=== PATIENT | female | born 1980 | race Caucasian/White ===

== ENCOUNTER 2016-10-16 18:47 | Emergency (ER) | payer SELFPAY ==
--- NOTE | 2016-10-16 20:44 | UC ---
Ear Complaint HPI - HPI Summary HPI Summary: pt c/o bilateral ear pain, dysuria and unusual vaginal discharge, low back discomfort and vaginal burning. C/o, thin, white discharge and vaginal discomfort. Denies STD exposure - History of Current Complaint Stated Complaint: POSSIBLE EAR INFECTION Time Seen by Provider: 10/16/16 20:12 Hx Obtained From: Patient Hx Last Menstrual Period: 06/10 ?: No Onset/Duration: Gradual Onset, Lasting Days Severity Initially: Mild Severity Currently: Mild - Allergies/Home Medications Allergies/Adverse Reactions: Allergies Allergy/AdvReac Type Severity Reaction Status Date / Time Amoxicillin Allergy Severe Airway Verified 10/16/16 21:17 Obstruction Sulfamethoxazole Allergy Severe Difficulty Verified 10/16/16 21:17 w/Trimethoprim Breathing [From Bactrim] Cooked tomatoes, spaghetti Allergy Swelling Uncoded 10/16/16 21:17 sauce, k Of Face,Lips,& Throat PMH/Surg Hx/FS Hx/Imm Hx Previously Healthy: Yes Endocrine History Of: Denies: Diabetes Respiratory History Of: Denies: COPD - Surgical History Surgical History: Yes Surgery Procedure, Year, and Place: 1986 [facility] & A. 2000 TUBAL LIGATION. EARS TUBES - Family History Known Family History: Positive: Cardiac Disease, Hypertension, Diabetes - Social History Lives: With Family Alcohol Use: Rare Substance Use Type: None Smoking Status (MU): Light Every Day Tobacco Smoker Type: Cigarettes Amount Used/How Often: 1/2 ppd Length of Time of Smoking/Using Tobacco: 24 years Household Exposure Type: Cigarettes - Immunization History Most Recent Influenza Vaccination: NOT IN 2013 Review of Systems Constitutional: Negative Skin: Negative Eyes: Negative ENT: Ear Ache Respiratory: Negative Cardiovascular: Negative Gastrointestinal: Negative Genitourinary: Dysuria, Other - vaginal discharge Motor: Negative Neurovascular: Negative Musculoskeletal: Negative Neurological: Negative Psychological: Negative All Other Systems Reviewed And Are Negative: Yes Physical Exam Triage Information Reviewed: Yes Appearance: Well-Appearing Eye Exam: Normal ENT Exam: Normal Neck exam: Normal Respiratory Exam: Normal Cardiovascular Exam: Normal Abdominal Exam: Other Abdomen Description: Positive: Other: - low back discomfort Musculoskeletal Exam: Normal Neurological Exam: Normal Psychological Exam: Normal Skin Exam: Normal Ear Complaint Course/Dx - Differential Dx/Diagnosis Differential Diagnosis/HQI/PQRI: Otitis Media, URI Provider Diagnoses: URI. vaginitis Discharge - Discharge Plan Condition: Stable Disposition: HOME Patient Education Materials: Upper Respiratory Infection (ED), Vaginitis (ED) Referrals: SAMUEL Brooks [Primary Care Provider] -
[2016-10-16 21:23] VITALS: BP 129/74
== END 2016-10-16 21:29 | disposition home or self-care (01) ==
LOC: UCCORT 18:47
DX: J06.9 Acute upper respiratory infection, unspecified (principal); N76.0 Acute vaginitis; F17.210 Nicotine dependence, cigarettes, uncomplicated; Z88.1 Allergy status to other antibiotic agents
CPT/HCPCS: 87480; 87491; 87510; 87591; 87660; 99212; G0463

== ENCOUNTER 2017-10-09 18:00 | Emergency (ER) | payer OTHER ==
[2017-10-09 19:50] VITALS: BP 109/77
--- NOTE | 2017-10-09 20:12 | UC ---
Throat Pain/Nasal Mo HPI - HPI Summary HPI Summary: pt c/o nasal congestion, sinus pressure, pain, bilateral ear pain X 7-10 days. - History of Current Complaint Chief Complaint: UCGeneralIllness Stated Complaint: EAR PAIN, SINUS Time Seen by Provider: 10/09/17 19:45 Hx Obtained From: Patient Hx Last Menstrual Period: 06/10 ?: No Onset/Duration: Gradual Onset, Lasting Days - 10, Still Present Severity: Moderate Pain Intensity: 4 Associated Signs & Symptoms: Positive: Sinus Discomfort Related History: Seasonal Allergies - Epiglottits Risk Factors Epiglottis Risk Factors: Negative - Allergies/Home Medications Allergies/Adverse Reactions: Allergies Allergy/AdvReac Type Severity Reaction Status Date / Time Amoxicillin Allergy Severe Airway Verified 10/09/17 19:50 Obstruction Sulfamethoxazole Allergy Severe Difficulty Verified 10/09/17 19:50 w/Trimethoprim Breathing [From Bactrim] Cooked tomatoes, spaghetti Allergy Swelling Uncoded 10/09/17 19:50 sauce, k Of Face,Lips,& Throat Home Medications: Home Medications Cetirizine* [ZyrTEC 10 MG TAB*] 10 mg PO DAILY 10/09/17 [History Confirmed 10/09] PMH/Surg Hx/FS Hx/Imm Hx Previously Healthy: Yes - Surgical History Surgical History: Yes Surgery Procedure, Year, and Place: 1986 [facility] & A. 2000 TUBAL LIGATION. EARS TUBES. hysterectomy 05/2017 - Family History Known Family History: Positive: Cardiac Disease, Hypertension, Diabetes - Social History Occupation: Employed Full-time Lives: With Family Alcohol Use: None Substance Use Type: None Smoking Status (MU): Light Every Day Tobacco Smoker Type: Cigarettes Amount Used/How Often: 1/2 ppd Length of Time of Smoking/Using Tobacco: 24 years Have You Smoked in the Last Year: Yes Household Exposure Type: Cigarettes - Immunization History Most Recent Influenza Vaccination: NOT IN 2013 Review of Systems Constitutional: Fever, Fatigue Skin: Negative Eyes: Negative ENT: Sinus Congestion, Sinus Pain/Tenderness Respiratory: Negative Cardiovascular: Negative Gastrointestinal: Negative Genitourinary: Negative Motor: Negative Neurovascular: Negative Musculoskeletal: Negative Neurological: Headache Psychological: Negative Is Patient Immunocompromised?: No All Other Systems Reviewed And Are Negative: Yes Physical Exam Triage Information Reviewed: Yes Appearance: Ill-Appearing Vital Signs: Initial Vital Signs Temp 98.8 F 10/09/17 19:44 Pulse 76 10/09/17 19:44 Resp 15 10/09/17 19:44 BP 109/77 10/09/17 19:44 Pulse Ox 99 10/09/17 19:44 Vital Signs Reviewed: Yes Eye Exam: Normal ENT Exam: Other ENT: Positive: Nasal congestion, Sinus tenderness Dental Exam: Normal Neck exam: Normal Respiratory Exam: Normal Cardiovascular Exam: Normal Musculoskeletal Exam: Normal Neurological Exam: Normal Psychological Exam: Normal Skin Exam: Normal Throat Pain/Nasal Course/Dx - Differential Dx/Diagnosis Differential Diagnosis/HQI/PQRI: Otitis Media, Sinusitis, URI Provider Diagnoses: sinusitis. bilateral ear pain Discharge - Discharge Plan Condition: Stable Disposition: HOME Prescriptions: Azithromycin TAB* [Zithromax TAB (Z-HOLLIE) 250 mg #6 tabs] 250 mg PO DAILY #4 tab Patient Education Materials: Sinusitis (ED) Referrals: [facility] [Outside] No Primary Care Phys,NOPCP [Primary Care Provider] - If Needed
[2017-10-09] MEDS ORDERED: Azithromycin TAB* 250 MG PO ONE (20:13)
== END 2017-10-09 20:45 | disposition home or self-care (01) ==
LOC: UCCORT 18:00
DX: J32.9 Chronic sinusitis, unspecified (principal); H92.03 Otalgia, bilateral; Z88.1 Allergy status to other antibiotic agents; Z88.2 Allergy status to sulfonamides; F17.210 Nicotine dependence, cigarettes, uncomplicated
CPT/HCPCS: 99212; A9270-GY; G0463

== ENCOUNTER 2019-02-27 21:18 | Emergency (ER) | payer BC, OTHER ==
[2019-02-27 21:33] VITALS: BP 120/73
--- NOTE | 2019-02-27 21:47 | ED ---
Throat Pain/Nasal Congestion - HPI Summary HPI Summary: 38 yr old female with the complaint of sinus pressure, post nasal drip, coughing. Onset a couple of weeks ago. Symptoms are moderate. 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 She states her boyfriend found a worm in anal area last night. She is concerned for pin worms. - History of Current Complaint Chief Complaint: UCGeneralIllness Time Seen by Provider: 02/27/19 21:34 - Allergies/Home Medications Allergies/Adverse Reactions: Allergies Allergy/AdvReac Type Severity Reaction Status Date / Time MS Amoxicillin [Amoxicillin] Allergy Severe Airway Verified 10/09/17 19:50 Obstruction MS Sulfamethoxazole Allergy Severe Difficulty Verified 10/09/17 19:50 w/Trimethoprim Breathing [From Bactrim] Cooked tomatoes, spaghetti Allergy Swelling Uncoded 10/09/17 19:50 sauce, k Of Face,Lips,& Throat Home Medications: Home Medications Aspirin/Acetaminophen/Caffeine [Excedrin Migraine Caplet] 1 each PO DAILY [History Confirmed 02/27/19] PMH/Surg Hx/FS Hx/Imm Hx Endocrine/Hematology History: Denies: Hx Diabetes Respiratory History: Denies: Hx Chronic Obstructive Pulmonary Disease (COPD) - Surgical History Surgery Procedure, Year, and Place: 1986 [facility] & A. 2000 TUBAL LIGATION. EARS TUBES. hysterectomy 05/2017 Infectious Disease History: No Infectious Disease History: Denies: Traveled Outside the [place] in Last 30 Days - Family History Known Family History: Positive: Cardiac Disease, Hypertension, Diabetes - Social History Lives: With Family Alcohol Use: None Substance Use Type: Reports: None Smoking Status (MU): Light Every Day Tobacco Smoker Type: Cigarettes Amount Used/How Often: 1/2 ppd Length of Time of Smoking/Using Tobacco: 24 years Have You Smoked in the Last Year: Yes Review of Systems Constitutional: Negative Positive: Sore Throat, Nasal Discharge Positive: Cough Positive: Other - anal itching All Other Systems Reviewed And Are Negative: Yes Physical Exam Triage Information Reviewed: Yes Vital Signs On Initial Exam: Initial Vitals Temp Pulse Resp BP Pulse Ox 97 F 66 16 120/73 99 02/27/19 21:29 02/27/19 21:29 02/27/19 21:29 02/27/19 21:29 02/27/19 21:29 Vital Signs Reviewed: Yes Appearance: Positive: Well-Appearing Skin: Positive: Warm, Skin Color Reflects Adequate Perfusion Head/Face: Positive: Normal Head/Face Inspection Eyes: Positive: EOMI ENT: Positive: Pharyngeal erythema, Nasal congestion, TMs normal, Sinus tenderness Neck: Positive: Nontender Respiratory/Lung Sounds: Positive: Clear to Auscultation, Breath Sounds Present Cardiovascular: Positive: RRR. Negative: Murmur Abdomen Description: Positive: Nontender. Negative: Distended Musculoskeletal: Positive: Strength/ROM Intact Neurological: Positive: Sensory/Motor Intact, Alert, Oriented to Person Place, Time, CN Intact II-III Psychiatric: Positive: Normal - Rylie Coma Scale Best Eye Response: 4 - Spontaneous Best Motor Response: 6 - Obeys Commands Best Verbal Response: 5 - Oriented Coma Scale Total: 15 Diagnostics - Vital Signs Vital Signs Temp Pulse Resp BP Pulse Ox 02/27/19 21:29 97 F 66 16 120/73 99 - Laboratory Lab Statement: Any lab studies that have been ordered have been reviewed, and results considered in the medical decision making process. EENT Course/Dx - Course Course Of Treatment: 38 yr old with possible pinworms, and sinusitis. Rx with biaxin. Await return of the paddle test for pin worms; patient to bring back here. - Diagnoses Provider Diagnoses: Sinusitis, Anal itching Discharge - Sign-Out/Discharge Documenting (check all that apply): Patient Departure All imaging exams completed and their final reports reviewed: No Studies - Discharge Plan Condition: Good Disposition: HOME Prescriptions: Clarithromycin TAB* [Biaxin 500 MG TAB*] 500 mg PO BID #20 tab Patient Education Materials: Sinusitis (ED), Anal Itching (ED) Referrals: SAMUEL Gifford [Primary Care Provider] - 1 Day Additional Instructions: bring back the stool paddle for further testing - Billing Disposition and Condition Condition: GOOD Disposition: Home
== END 2019-02-27 21:56 | disposition home or self-care (01) ==
LOC: UCCORT 21:18
DX: J32.9 Chronic sinusitis, unspecified (principal); L29.0 Pruritus ani; Z88.2 Allergy status to sulfonamides; Z88.1 Allergy status to other antibiotic agents; F17.210 Nicotine dependence, cigarettes, uncomplicated
CPT/HCPCS: 87172; 99212; G0463

== ENCOUNTER 2019-09-12 21:55 | Emergency (ER) | payer BC ==
[2019-09-12] MEDS ORDERED: DOXYcycline CAP(*) 100 MG PO ONE (22:11)
[2019-09-12 22:12] VITALS: BP 133/98
--- NOTE | 2019-09-12 22:13 | UC ---
Throat Pain/Nasal Mo HPI - HPI Summary HPI Summary: 39 year old female presents with 3 week history of sinus pain and pressure, nasal congestion, and bilateral ear fullness and pain. Tonight had a brief episode of vertigo after she got up from a nap. States she has been taking OTC diphenhydramine and ibuprofen with little relief in her symptoms. Reports history of chronic sinus infections. Has appointment with her PCP next week. Smokes 1/2 PPD. Denies fever, chills, sore throat, cough, chest pain, or SOB. - History of Current Complaint Stated Complaint: SINUS Hx Obtained From: Patient Hx Last Menstrual Period: 06/10 - Allergies/Home Medications Allergies/Adverse Reactions: Allergies Allergy/AdvReac Type Severity Reaction Status Date / Time MS Amoxicillin [Amoxicillin] Allergy Severe Airway Verified 09/12/19 21:59 Obstruction MS Sulfamethoxazole Allergy Severe Difficulty Verified 09/12/19 21:59 w/Trimethoprim Breathing [From Bactrim] Cooked tomatoes, spaghetti Allergy Swelling Uncoded 09/12/19 21:59 sauce, k Of Face,Lips,& Throat Home Medications: Home Medications diPHENhydraMINE PO* [Benadryl PO 25 MG TAB*] mg PO DAILY 09/12/19 [History] PMH/Surg Hx/FS Hx/Imm Hx Previously Healthy: Yes - Denies significant PMH - Surgical History Surgical History: Yes Surgery Procedure, Year, and Place: 1986 [facility] & A. 2000 TUBAL LIGATION. EARS TUBES. hysterectomy 05/2017 - Family History Known Family History: Positive: Cardiac Disease, Hypertension, Diabetes - Social History Occupation: Employed Full-time Lives: With Family Alcohol Use: None Substance Use Type: None Smoking Status (MU): Light Every Day Tobacco Smoker Type: Cigarettes Amount Used/How Often: 1/2 ppd Length of Time of Smoking/Using Tobacco: 24 years Have You Smoked in the Last Year: Yes Household Exposure Type: Cigarettes - Immunization History Most Recent Influenza Vaccination: NOT IN 2013 Review of Systems All Other Systems Reviewed And Are Negative: Yes Constitutional: Positive: Fatigue. Negative: Fever, Chills Skin: Negative: Rash Eyes: Negative: Drainage, Eye Redness ENT: Positive: Ear Ache, Nasal Discharge, Sinus Congestion, Sinus Pain/ Tenderness. Negative: Sore Throat Respiratory: Negative: Shortness Of Breath, Cough Cardiovascular: Negative: Chest Pain Gastrointestinal: Negative: Abdominal Pain, Vomiting, Diarrhea, Nausea Genitourinary: Positive: Negative Musculoskeletal: Positive: Negative Neurological: Positive: Negative Is Patient Immunocompromised?: No Physical Exam - Summary Physical Exam Summary: GENERAL APPEARANCE: Well developed, well nourished, alert and cooperative, and appears to be in no acute distress. EYES: Conjunctiva clear. No drainage. EARS: External auditory canals and tympanic membranes clear, hearing grossly intact. NOSE: Moderate nasal congestion. No nasal discharge. Maxillary sinus tenderness. THROAT: Pharyngeal cobblestoning. Tonsils surgically absent. Uvula midline. NECK: Neck supple, non-tender without lymphadenopathy. CARDIAC: Normal S1 and S2. No S3, S4 or murmurs. Rhythm is regular. There is no peripheral edema, cyanosis or pallor. Extremities are warm and well perfused. Capillary refill is less than 2 seconds. Peripheral pulses intact. LUNGS: Clear to auscultation without rales, rhonchi, wheezing or diminished breath sounds. ABDOMEN: Positive bowel sounds. Soft, nondistended, nontender. No guarding or rebound. No masses or hepatosplenomegally. MUSKULOSKELETAL: ROM intact to all extremities. No joint erythema or tenderness. Normal muscular development. Normal gait. SKIN: Skin normal color, texture and turgor with no lesions or eruptions. Triage Information Reviewed: Yes Vital Signs Reviewed: Yes Throat Pain/Nasal Course/Dx - Course Course Of Treatment: 39 year old female presents with 3 week history of sinus pain and pressure, nasal congestion, and bilateral ear fullness and pain. Tonight had a brief episode of vertigo after she got up from a nap. States she has been taking OTC diphenhydramine and ibuprofen with little relief in her symptoms. Reports history of chronic sinus infections. Has appointment with her PCP next week. Smokes 1/2 PPD. Denies fever, chills, sore throat, cough, chest pain, or SOB. Afebrile. VSS. Patient had moderate nasal congestion, maxillary sinus tenderness , pharyngeal cobblestoning and otherwise unremarkable exam. Considering the duration of her symptoms we will start her on doxycycline 100 mg BID x 7 days as well as recommend symptomatic treatment for acute sinusitis. She was given the first dose of antibiotic in the clinic she is to follow up with her PCP in 7 days if symptoms do not improve. Anticipatory guidance and warning symptoms were reviewed with patient. Verbalizes understanding and agrees with POC. - Differential Dx/Diagnosis Differential Diagnosis/HQI/PQRI: Sinusitis, URI Provider Diagnosis: Acute sinusitis Discharge ED - Sign-Out/Discharge Documenting (check all that apply): Patient Departure All imaging exams completed and their final reports reviewed: No Studies - Discharge Plan Condition: Stable Disposition: HOME Prescriptions: Doxycycline Hyclate 100 mg PO BID 7 Days #14 tablet Patient Education Materials: Sinusitis (ED) Referrals: Natalee Hutchins [Primary Care Provider] - 7 Days Additional Instructions: Your history and exam are consistent with a sinus infection. Start doxycycline 100 mg twice a day for 7 days. You were given the first dose in the clinic. Drink plenty of fluids to avoid dehydration especially if you are running any fever. Use a saline rinse kit such as Neti Pot or NeilMed at least twice a day to help thin secretions and promote drainage of the sinuses. Use over the counter fluticasone (Flonase) nasal spray 2 sprays each nostril once daily. Use an over the counter decongestant such as Sudafed according to directions to help with congestion. Take over the counter acetaminophen (Tylenol) or ibuprofen (Advil, Motrin) according to directions as needed for pain or fever. STOP SMOKING as this is the primary cause of your chronic sinus symptoms. Follow up with your primary care provider in 7 days if symptoms persist. Seek immediate medical attention in the emergency room if you have fever greater than 100.5 F despite taking acetaminophen or ibuprofen, have chest pain , difficulty breathing, are unable to swallow, or have any worsening of symptoms. - Billing Disposition and Condition Condition: STABLE Disposition: Home - Attestation Statements Provider Attestation: Per institutional requirements, I have reviewed the chart, however, I was not consulted specifically or made aware of this patient by the midlevel provider. I did not personally evaluate, interact with , or disposition this patient.
== END 2019-09-12 22:21 | disposition home or self-care (01) ==
LOC: UCCORT 21:55
DX: J01.00 Acute maxillary sinusitis, unspecified (principal); R42 Dizziness and giddiness; F17.210 Nicotine dependence, cigarettes, uncomplicated; Z88.0 Allergy status to penicillin; Z88.2 Allergy status to sulfonamides; Z91.018 Allergy to other foods
CPT/HCPCS: 99212; A9270-GY; G0463